=== PATIENT | female | born 1980 | race Caucasian/White ===

== ENCOUNTER 2019-10-12 20:30 | Inpatient (IN) ==
[2019-10-12] MEDS ORDERED: MORPHINE IV ONE ×2 (21:57→22:49)
[2019-10-12] MEDS ORDERED: PHENERGAN IM ONE (22:31)
[2019-10-12] MEDS ORDERED: MORPHINE IM ONE (22:31)
[2019-10-12] MEDS ORDERED: SODIUM CHLORIDE 0.9% INJ ONE (22:50)
[2019-10-12] MEDS ORDERED: PHENERGAN IV ONE (22:50)
[2019-10-12 22:58] LABS: BASO# 0.02 X1000 (0.0-0.2); BASO% 0.1 % (0.0-0.8); EOS# 0.03 X1000 (0.0-0.7); EOS% 0.2 % (0.0-10.0); HEMATOCRIT 39.6 % (37.0-47.0); HEMOGLOBIN 12.5 g/dL (12.0-16.0); IMM GRAN# 0.08 X1000 (0.0-0.04); IMM GRAN% 0.4 % (0.0-0.5); LYMPH# 2.25 X1000 (1.2-3.4); MCH 28.3 PG (27-31); MCHC 31.6 g/dL (33-37); MCV 89.6 FL (81-99); MONO# 1.41 X1000 (0.11-0.59); MONO% 7.5 % (1.7-9.3); MPV 10.2 FL (7.4-10.4); NEUT# 14.98 X1000 (1.4-6.5); NEUT% 79.8 % (42.2-75.2); PLT 290 X1000 (130-400); RBC 4.42 XMIL (4.2-5.4); WBC 18.77 X1000 (4.8-10.8)
[2019-10-12 23:09] LABS: AGAP 13; BUN 10 mg/dL (8-22); CALCIUM 8.8 mg/dL (8.8-10.2); CHLORIDE 105 mmol/L (98-107); COSMO 284; CREATININE 0.5 mg/dL (0.5-0.9); ESTIMATED GFR > 60; GLUCOSE 101 mg/dL (70-104); POTASSIUM 3.8 mmol/L (3.5-5.1); SODIUM 143 mmol/L (136-145); TCO2 25 mmol/L (25-35)
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
[2019-10-12] MEDS ORDERED: NS 1,000 ML IV ONE (23:45)
[2019-10-13] MEDS: MORPHINE IV PRN ×2 (00:48→05:38)
[2019-10-13] MEDS ORDERED: PHENERGAN IM PRN (01:16)
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
[2019-10-13] MEDS: DILAUDID IV PRN ×5 (02:18→20:26)
[2019-10-13] MEDS: REGLAN IV PRN ×5 (02:22→22:42)
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
[2019-10-13] MEDS ORDERED: METHYLNALTREXONE BROMIDE 150 MG PO SCH (09:00)
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
[2019-10-13] MEDS: KEPPRA PO SCH ×2 (10:22→20:25)
[2019-10-13] MEDS: NORCO-10 PO PRN ×2 (10:22→18:32)
[2019-10-13] MEDS: COLACE PO SCH (10:22)
[2019-10-13] MEDS: TOPROL XL PO SCH (10:22)
[2019-10-13] MEDS: ZANAFLEX PO SCH ×3 (10:26→16:17)
[2019-10-13] MEDS: TOFRANIL PO SCH (20:25)
[2019-10-13] MEDS: DESYREL PO SCH (20:26)
[2019-10-13] MEDS: ESTRACE PO SCH (20:26)
[2019-10-13] MEDS: ATIVAN PO SCH (20:26)
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
[2019-10-14] MEDS: DILAUDID IV PRN ×5 (03:45→20:56)
[2019-10-14] MEDS: REGLAN IV PRN ×2 (03:50→08:57)
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
[2019-10-14] MEDS: TOPROL XL PO SCH ×2 (07:58→08:06)
[2019-10-14] MEDS: KEPPRA PO SCH ×3 (07:58→20:55)
[2019-10-14] MEDS: NORCO-10 PO PRN ×3 (07:58→22:07)
[2019-10-14] MEDS: ZANAFLEX PO SCH ×4 (07:59→16:16)
[2019-10-14] MEDS: COLACE PO SCH ×2 (07:59→08:06)
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
[2019-10-14] MEDS: ESTRACE PO SCH (20:55)
[2019-10-14] MEDS: DESYREL PO SCH (20:55)
[2019-10-14] MEDS: ATIVAN PO SCH (20:55)
[2019-10-14] MEDS: TOFRANIL PO SCH (20:55)
[2019-10-15] MEDS: DILAUDID IV PRN ×3 (01:06→09:20)
[2019-10-15] MEDS: NORCO-10 PO PRN ×2 (04:02→09:58)
[2019-10-15] MEDS: COLACE PO SCH (08:23)
[2019-10-15] MEDS: KEPPRA PO SCH (08:23)
[2019-10-15] MEDS: TOPROL XL PO SCH (08:23)
[2019-10-15 08:28] VITALS: BP 132/94
[2019-10-15] MEDS ORDERED: ZANAFLEX PO SCH (09:00)
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
== END 2019-10-15 10:05 | disposition home or self-care (01) | DRG 565 ==
LOC: SUPCPDRO → 4N 20:30 → ED 20:30 → OBSVTOIN 10-13 01:21
PROVIDERS: ADMIT Surgery; ATTEND Surgery